=== PATIENT | male | born 1980 | race Asian ===

== ENCOUNTER 2023-03-26 17:06 | Inpatient (IN) | payer OTHER ==
[~2023-03-26] VITALS: Ht 182.9 cm; Wt 89.4 kg
[2023-03-26 20:00] VITALS: BP 140/80
[2023-03-26] MEDS ORDERED: OxyCODONE HCL 10 MG IR TABLET PO PRN (20:30)
[2023-03-26] MEDS ORDERED: MAGNESIUM HYDROXIDE SUSPENSION 30 ML UDCUP PO PRN (20:30)
[2023-03-26] MEDS ORDERED: ONDANSETRON HCL 4 MG TABLET PO PRN (20:30)
[2023-03-26] MEDS ORDERED: OxyCODONE HCL 5 MG IR TABLET PO PRN (20:30)
[2023-03-26] MEDS: DOCUSATE SODIUM 100 MG CAPSULE PO SCH (21:18)
[2023-03-26] MEDS: GABAPENTIN 300 MG CAPSULE PO SCH (21:18)
[2023-03-26] MEDS: TraZODone HCL 50 MG TABLET PO SCH (21:19)
[2023-03-26] MEDS: ENOXAPARIN SODIUM 40 MG/0.4 ML PF SYRINGE SQ SCH (21:19)
[2023-03-26] MEDS: ETHYL ALCOHOL 62% ANTISEPTIC NASAL SANITIZER 0.6 ML AMPUL NASAL SCH (21:21)
[2023-03-26] MEDS: IBUPROFEN 600 MG TABLET PO SCH (23:22)
[2023-03-26] MEDS: ACETAMINOPHEN 325 MG TABLET PO SCH (23:22)
[2023-03-27] MEDS: ACETAMINOPHEN 325 MG TABLET PO SCH ×4 (06:04→23:16)
[2023-03-27] MEDS: IBUPROFEN 600 MG TABLET PO SCH ×4 (06:04→23:16)
[2023-03-27 08:05] VITALS: BP 129/81
[2023-03-27] MEDS: FLUTICASONE/VILANTEROL 200-25 MCG/INH INHALER [14] IH SCH (08:59)
[2023-03-27] MEDS: ETHYL ALCOHOL 62% ANTISEPTIC NASAL SANITIZER 0.6 ML AMPUL NASAL SCH ×2 (08:59→20:30)
[2023-03-27] MEDS: POLYETHYLENE GLYCOL 3350 17 GM PACKET PO SCH (09:00)
[2023-03-27] MEDS: ENOXAPARIN SODIUM 40 MG/0.4 ML PF SYRINGE SQ SCH ×2 (09:00→20:30)
[2023-03-27] MEDS: DOCUSATE SODIUM 100 MG CAPSULE PO SCH ×2 (09:00→20:31)
[2023-03-27] MEDS: CHOLECALCIFEROL (VIT D3) 5,000 [125 MCG] UNITS CAPSULE PO SCH (09:00)
[2023-03-27] MEDS: GABAPENTIN 300 MG CAPSULE PO SCH ×3 (09:00→20:31)
[2023-03-27 09:12] LABS: EOSINOPHILS % (AUTO) 3.6 % (1.0-6.0); HEMATOCRIT 34.4 % (41-53); HEMOGLOBIN 11.2 g/dL (13.5-17.5); LYMPHOCYTES # (AUTO) 1.8 K/uL (1.0-4.8); LYMPHOCYTES % (AUTO) 18.3 % (22.0-44.0); MEAN CORPUSCULAR HEMOGLOBIN 29.5 pg (26.0-34.0); MEAN CORPUSCULAR HGB CONC 32.5 G/dL (31.0-37.0); MEAN CORPUSCULAR VOLUME 91 fL (80-100); MONOCYTES # (AUTO) 0.7 K/uL (0.1-1.0); MONOCYTES % (AUTO) 7.2 % (2.0-9.0); NEUTROPHILS # (AUTO) 6.8 K/uL (1.8-7.7); NEUTROPHILS % (AUTO) 69.9 % (40.0-70.0); PLATELET COUNT (AUTO) 441 K/uL (150-450); RED BLOOD CELL COUNT(AUTO) 3.79 MIL/uL (4.50-5.90); RED CELL DISTRIBUTION WIDTH 15.9 % (11.5-14.5)
[2023-03-27 09:38] LABS: ALANINE AMINOTRANSFERASE 125 U/L (12-78); ALKALINE PHOSPHATASE 176 U/L (46-116); ANION GAP 8 mmol/L (8-16); ASPARTATE AMINOTRANSFERASE 68 U/L (15-37); BILIRUBIN,TOTAL 0.6 mg/dL (0.1-1.0); CALCIUM, TOTAL 9.1 mg/dL (8.8-10.5); CARBON DIOXIDE 25 mmol/L (22-29); CHLORIDE 104 mmol/L (98-107); CREATININE 1.09 mg/dL (0.60-1.30); GLOMERULAR FILTR. RATE CALC > 60 mL/min (>60); GLUCOSE,RANDOM 102 mg/dL (70-110); POTASSIUM 4.2 mmol/L (3.5-5.1); SODIUM SERUM 137 mmol/L (136-145); TOTAL PROTEIN, SERUM 7.7 g/dL (6.4-8.2)
[2023-03-27] MEDS ORDERED: SODIUM CL IRRIG SOLN BOTTLE 250 ML IRRIG ONE (09:55)
[2023-03-27 20:00] VITALS: BP 120/80
[2023-03-27] MEDS: TraZODone HCL 50 MG TABLET PO SCH (20:30)
[2023-03-28] MEDS: ACETAMINOPHEN 325 MG TABLET PO SCH ×3 (06:18→17:47)
[2023-03-28] MEDS: IBUPROFEN 600 MG TABLET PO SCH ×3 (06:18→17:47)
[2023-03-28 08:00] VITALS: BP 132/79
[2023-03-28] MEDS: POLYETHYLENE GLYCOL 3350 17 GM PACKET PO SCH (08:45)
[2023-03-28] MEDS: DOCUSATE SODIUM 100 MG CAPSULE PO SCH ×2 (08:45→21:00)
[2023-03-28] MEDS: GABAPENTIN 300 MG CAPSULE PO SCH ×3 (08:45→21:18)
[2023-03-28] MEDS: ETHYL ALCOHOL 62% ANTISEPTIC NASAL SANITIZER 0.6 ML AMPUL NASAL SCH ×2 (08:45→21:18)
[2023-03-28] MEDS: FLUTICASONE/VILANTEROL 200-25 MCG/INH INHALER [14] IH SCH (08:45)
[2023-03-28] MEDS: ENOXAPARIN SODIUM 40 MG/0.4 ML PF SYRINGE SQ SCH ×2 (08:46→21:18)
[2023-03-28] MEDS: CHOLECALCIFEROL (VIT D3) 5,000 [125 MCG] UNITS CAPSULE PO SCH (08:46)
[2023-03-28 21:00] VITALS: BP 138/85
[2023-03-28] MEDS: TraZODone HCL 50 MG TABLET PO SCH (21:18)
[2023-03-29] MEDS: ACETAMINOPHEN 325 MG TABLET PO SCH ×4 (05:05→18:00)
[2023-03-29] MEDS: IBUPROFEN 600 MG TABLET PO SCH ×4 (05:05→18:00)
[2023-03-29 08:30] VITALS: BP 146/92
[2023-03-29] MEDS: ENOXAPARIN SODIUM 40 MG/0.4 ML PF SYRINGE SQ SCH ×2 (08:56→20:30)
[2023-03-29] MEDS: CHOLECALCIFEROL (VIT D3) 5,000 [125 MCG] UNITS CAPSULE PO SCH (08:56)
[2023-03-29] MEDS: FLUTICASONE/VILANTEROL 200-25 MCG/INH INHALER [14] IH SCH (08:56)
[2023-03-29] MEDS: GABAPENTIN 300 MG CAPSULE PO SCH ×3 (08:57→20:32)
[2023-03-29] MEDS: DOCUSATE SODIUM 100 MG CAPSULE PO SCH ×2 (08:57→20:39)
[2023-03-29] MEDS: POLYETHYLENE GLYCOL 3350 17 GM PACKET PO SCH (08:58)
[2023-03-29] MEDS: ETHYL ALCOHOL 62% ANTISEPTIC NASAL SANITIZER 0.6 ML AMPUL NASAL SCH ×2 (09:00→20:30)
[2023-03-29 20:00] VITALS: BP 146/89
[2023-03-29] MEDS: TraZODone HCL 50 MG TABLET PO SCH (20:32)
[2023-03-30] MEDS: IBUPROFEN 600 MG TABLET PO SCH ×4 (06:02→18:15)
[2023-03-30] MEDS: ACETAMINOPHEN 325 MG TABLET PO SCH ×4 (06:02→18:15)
[2023-03-30] MEDS: FLUTICASONE/VILANTEROL 200-25 MCG/INH INHALER [14] IH SCH (08:11)
[2023-03-30] MEDS: ETHYL ALCOHOL 62% ANTISEPTIC NASAL SANITIZER 0.6 ML AMPUL NASAL SCH ×2 (08:11→20:53)
[2023-03-30] MEDS: ENOXAPARIN SODIUM 40 MG/0.4 ML PF SYRINGE SQ SCH ×2 (08:11→20:54)
[2023-03-30] MEDS: CHOLECALCIFEROL (VIT D3) 5,000 [125 MCG] UNITS CAPSULE PO SCH (08:12)
[2023-03-30] MEDS: GABAPENTIN 300 MG CAPSULE PO SCH ×3 (08:12→20:54)
[2023-03-30] MEDS: POLYETHYLENE GLYCOL 3350 17 GM PACKET PO SCH (08:36)
[2023-03-30] MEDS: DOCUSATE SODIUM 100 MG CAPSULE PO SCH ×2 (08:36→21:00)
[2023-03-30 09:40] VITALS: BP 139/88
[2023-03-30] MEDS ORDERED: SODIUM CL IRRIG SOLN BOTTLE 250 ML IRRIG ONE (14:03)
[2023-03-30 20:00] VITALS: BP 146/90
[2023-03-30] MEDS: TraZODone HCL 50 MG TABLET PO SCH (20:54)
[2023-03-31] MEDS: IBUPROFEN 600 MG TABLET PO SCH ×4 (05:46→17:25)
[2023-03-31] MEDS: ACETAMINOPHEN 325 MG TABLET PO SCH ×4 (05:46→17:26)
[2023-03-31] MEDS: GABAPENTIN 300 MG CAPSULE PO SCH ×3 (08:04→21:02)
[2023-03-31] MEDS: ENOXAPARIN SODIUM 40 MG/0.4 ML PF SYRINGE SQ SCH ×2 (08:04→21:02)
[2023-03-31] MEDS: DOCUSATE SODIUM 100 MG CAPSULE PO SCH ×2 (08:04→21:00)
[2023-03-31] MEDS: ETHYL ALCOHOL 62% ANTISEPTIC NASAL SANITIZER 0.6 ML AMPUL NASAL SCH ×2 (08:04→21:02)
[2023-03-31] MEDS: FLUTICASONE/VILANTEROL 200-25 MCG/INH INHALER [14] IH SCH (08:04)
[2023-03-31] MEDS: CHOLECALCIFEROL (VIT D3) 5,000 [125 MCG] UNITS CAPSULE PO SCH (08:04)
[2023-03-31] MEDS: POLYETHYLENE GLYCOL 3350 17 GM PACKET PO SCH (08:07)
[2023-03-31 08:56] VITALS: BP 126/83
[2023-03-31 20:01] VITALS: BP 113/79
[2023-03-31] MEDS: TraZODone HCL 50 MG TABLET PO SCH (21:02)
[2023-03-31] MEDS ORDERED: ESCI-8 PO (22:44)
[2023-03-31] MEDS ORDERED: FLUT1BLS9 IH (22:44)
[2023-03-31] MEDS ORDERED: DEXT10TA4 PO (22:44)
[2023-04-01] MEDS: IBUPROFEN 600 MG TABLET PO SCH ×5 (05:51→17:11)
[2023-04-01] MEDS: ACETAMINOPHEN 325 MG TABLET PO SCH ×5 (05:51→17:11)
[2023-04-01 06:38] LABS: ALANINE AMINOTRANSFERASE 53 U/L (12-78); ALBUMIN 2.8 g/dL (3.4-5.0); ALKALINE PHOSPHATASE 171 U/L (46-116); ANION GAP 7 mmol/L (8-16); ASPARTATE AMINOTRANSFERASE 30 U/L (15-37); BILIRUBIN,TOTAL 0.5 mg/dL (0.1-1.0); CALCIUM, TOTAL 8.8 mg/dL (8.8-10.5); CARBON DIOXIDE 26 mmol/L (22-29); CHLORIDE 104 mmol/L (98-107); CREATININE 0.88 mg/dL (0.60-1.30); GLOMERULAR FILTR. RATE CALC > 60 mL/min (>60); GLUCOSE,RANDOM 99 mg/dL (70-110); POTASSIUM 4.3 mmol/L (3.5-5.1); SODIUM SERUM 137 mmol/L (136-145); TOTAL PROTEIN, SERUM 7.1 g/dL (6.4-8.2)
[2023-04-01 08:05] VITALS: BP 144/84
[2023-04-01] MEDS: FLUTICASONE/VILANTEROL 200-25 MCG/INH INHALER [14] IH SCH (08:35)
[2023-04-01] MEDS: ENOXAPARIN SODIUM 40 MG/0.4 ML PF SYRINGE SQ SCH ×2 (08:35→21:13)
[2023-04-01] MEDS: DOCUSATE SODIUM 100 MG CAPSULE PO SCH ×2 (08:36→21:00)
[2023-04-01] MEDS: ETHYL ALCOHOL 62% ANTISEPTIC NASAL SANITIZER 0.6 ML AMPUL NASAL SCH ×2 (08:36→21:13)
[2023-04-01] MEDS: GABAPENTIN 300 MG CAPSULE PO SCH ×3 (08:36→21:13)
[2023-04-01] MEDS: CHOLECALCIFEROL (VIT D3) 5,000 [125 MCG] UNITS CAPSULE PO SCH (08:36)
[2023-04-01] MEDS: POLYETHYLENE GLYCOL 3350 17 GM PACKET PO SCH (08:37)
[2023-04-01 20:00] VITALS: BP 146/90
[2023-04-01] MEDS: TraZODone HCL 50 MG TABLET PO SCH (21:13)
[2023-04-02] MEDS: IBUPROFEN 600 MG TABLET PO SCH ×4 (05:48→18:01)
[2023-04-02] MEDS: ACETAMINOPHEN 325 MG TABLET PO SCH ×4 (05:49→18:01)
[2023-04-02 08:00] VITALS: BP 142/92
[2023-04-02] MEDS: DOCUSATE SODIUM 100 MG CAPSULE PO SCH (08:08)
[2023-04-02] MEDS: POLYETHYLENE GLYCOL 3350 17 GM PACKET PO SCH (08:08)
[2023-04-02] MEDS: ETHYL ALCOHOL 62% ANTISEPTIC NASAL SANITIZER 0.6 ML AMPUL NASAL SCH ×2 (08:21→20:16)
[2023-04-02] MEDS: CHOLECALCIFEROL (VIT D3) 5,000 [125 MCG] UNITS CAPSULE PO SCH (08:21)
[2023-04-02] MEDS: GABAPENTIN 300 MG CAPSULE PO SCH ×3 (08:21→20:15)
[2023-04-02] MEDS: ENOXAPARIN SODIUM 40 MG/0.4 ML PF SYRINGE SQ SCH ×2 (08:22→20:15)
[2023-04-02] MEDS: FLUTICASONE/VILANTEROL 200-25 MCG/INH INHALER [14] IH SCH (08:22)
[2023-04-02] MEDS ORDERED: POLYETHYLENE GLYCOL 3350 17 GM PACKET PO PRN (08:30)
[2023-04-02] MEDS: TraZODone HCL 50 MG TABLET PO SCH (20:15)
[2023-04-02 21:00] VITALS: BP 145/89
[2023-04-03] MEDS: IBUPROFEN 600 MG TABLET PO SCH ×5 (05:34→23:27)
[2023-04-03] MEDS: ACETAMINOPHEN 325 MG TABLET PO SCH ×5 (05:34→23:28)
[2023-04-03] MEDS: ETHYL ALCOHOL 62% ANTISEPTIC NASAL SANITIZER 0.6 ML AMPUL NASAL SCH ×2 (07:53→20:49)
[2023-04-03] MEDS: CHOLECALCIFEROL (VIT D3) 5,000 [125 MCG] UNITS CAPSULE PO SCH (07:53)
[2023-04-03] MEDS: ENOXAPARIN SODIUM 40 MG/0.4 ML PF SYRINGE SQ SCH ×2 (07:53→20:49)
[2023-04-03] MEDS: GABAPENTIN 300 MG CAPSULE PO SCH ×3 (07:53→20:48)
[2023-04-03] MEDS: FLUTICASONE/VILANTEROL 200-25 MCG/INH INHALER [14] IH SCH (07:54)
[2023-04-03 08:46] VITALS: BP 137/90
[2023-04-03] MEDS ORDERED: FLUT1BLS IH (10:05)
[2023-04-03] MEDS ORDERED: CHOL500013 PO (10:05)
[2023-04-03] MEDS ORDERED: ENOX40SY14 SQ (10:05)
[2023-04-03] MEDS ORDERED: ACET325T51 PO (10:05)
[2023-04-03] MEDS ORDERED: POLY17PO PO (10:05)
[2023-04-03] MEDS ORDERED: IBUP-1492 PO (10:05)
[2023-04-03] MEDS ORDERED: GABA-1181 PO (10:05)
[2023-04-03] MEDS ORDERED: TRAZ-252 PO (10:05)
[2023-04-03 20:30] VITALS: BP 144/80
[2023-04-03] MEDS: TraZODone HCL 50 MG TABLET PO SCH (20:48)
[2023-04-04] MEDS: ACETAMINOPHEN 325 MG TABLET PO SCH ×2 (06:40→12:00)
[2023-04-04] MEDS: IBUPROFEN 600 MG TABLET PO SCH ×2 (06:40→12:00)
[2023-04-04] MEDS: ETHYL ALCOHOL 62% ANTISEPTIC NASAL SANITIZER 0.6 ML AMPUL NASAL SCH (08:20)
[2023-04-04] MEDS: GABAPENTIN 300 MG CAPSULE PO SCH (08:20)
[2023-04-04] MEDS: ENOXAPARIN SODIUM 40 MG/0.4 ML PF SYRINGE SQ SCH (08:20)
[2023-04-04] MEDS: CHOLECALCIFEROL (VIT D3) 5,000 [125 MCG] UNITS CAPSULE PO SCH (08:21)
[2023-04-04] MEDS: FLUTICASONE/VILANTEROL 200-25 MCG/INH INHALER [14] IH SCH (08:21)
[2023-04-04 09:30] VITALS: BP 151/89
== END 2023-04-04 12:25 | disposition home or self-care (01) | DRG 964 ==
LOC: 2WR 19:50
PROVIDERS: ADMIT Nurse Practitioner Family; ATTEND Physical Medicine & Rehabilitation
DX: S82.142A Displaced bicondylar fracture of left tibia, initial encounter for closed fracture (principal); S72.92XA Unspecified fracture of left femur, initial encounter for closed fracture; S22.49XA Multiple fractures of ribs, unspecified side, initial encounter for closed fracture; S27.0XXA Traumatic pneumothorax, initial encounter; S32.049A Unspecified fracture of fourth lumbar vertebra, initial encounter for closed fracture; S32.591A Other specified fracture of right pubis, initial encounter for closed fracture; S32.592A Other specified fracture of left pubis, initial encounter for closed fracture; S32.059A Unspecified fracture of fifth lumbar vertebra, initial encounter for closed fracture; D64.9 Anemia, unspecified; G47.00 Insomnia, unspecified; I10 Essential (primary) hypertension; J45.909 Unspecified asthma, uncomplicated; K59.00 Constipation, unspecified; R26.9 Unspecified abnormalities of gait and mobility; R53.81 Other malaise; R74.01 Elevation of levels of liver transaminase levels; S42.001A Fracture of unspecified part of right clavicle, initial encounter for closed fracture; V29.99XA Rider (driver) (passenger) of other motorcycle injured in unspecified traffic accident, initial encounter; Z79.01 Long term (current) use of anticoagulants; Y93.89 Activity, other specified; Y92.89 Other specified places as the place of occurrence of the external cause; Y99.8 Other external cause status
CPT/HCPCS: 80053; 85025; 87081; 97110; 97112; 97150; 97162; 97167; 97530; 97535; 99285; 99366; J1650; Q9967